=== PATIENT | female | born 1985 | race Caucasian/White ===

== ENCOUNTER 2020-08-11 10:00 | Outpatient (RCR) | payer OTHER, SELFPAY ==
[2020-07-29 13:51] VITALS: BMI 19.8
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
--- NOTE | 2020-07-31 09:42 | PC.NURSE ---
Unable to verify patients insulin with patients pharmacy as the pharmacist stated they have no record on file for insulin. I received the prescription numbers from the patient for both medications as requested. Pharmacist stated last filled Humolog quick pen on September 24 (for 4 pens) with instructions to take up to 40 units daily. Pharmacist stated that would have run out in 1 month possibly 2 months. Also Tresiba was filled on December 12 2019 for (9 pens) take up to 30 units daily. Pharmacist stated she would have run out in 1 possibly 2 months. Patient stated she only fills at [facility] where I called. She states she takes as prescribed. Stated BS have been running in the low 200's to low 300's. Jennifer Haque APRN is aware. Unable to reconcile insulin medication.
--- NOTE | 2020-08-04 14:53 | P.PNPSP_ITS ---
Subjective Subjective Date of Service: 08/04/20 Reason For Visit: depression Interim History: Pt requested call to discuss medications. 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 She concurs and can recall no others. Discussed trial of Lamictal as antidepressants seem not to have been too helpful and current gabapentin has offered relief. She is interested in Lamictal trial which we discussed along with side effects, risks, benefits. Medication Compliance: Yes Side effects from medications: No Attending Groups: Yes Review of Systems Musculoskeletal: Reports other (chronic pain) Psychiatric: Reports anxiety, Reports depression, Reports difficulty concentrating, Reports hopelessness, Reports irritability, Reports anhedonia and Reports other (chronic pain) Mental Status Exam Mental Status Exam Patient Orientation: Person, Place, Time and Situation Level of Consciousness: Awake, Appropriate and Alert Patient Behavior: Appropriate and Talkative Mood Description: Withdrawn, Depressed, Anxious, Nervous and Apprehensive Affect Description: Flat Patient Cognition Impaired: No Ability to Follow Directions: Excellent Speech Pattern: Clear, Appropriate and Spontaneous Speech Memory Description: Intact Hallucinations: None Delusions: Not Present Thought Process: Intact Thought Content: positive for Intact Depressive Symptoms: Increased Anxiety, Loss of Int. in Activity, Hopelessness, Unhappiness, Increased Fatigue and Loss of Energy Judgement: Good Diagnostics Vital Signs (24Hr): Body Mass Index 19.8 Assessment & Plan Assessment & Plan (1) Recurrent major depression-severe: Status: Acute Code(s): F33.2 - Major depressive disorder, recurrent severe without psychotic features Assessment and Plan: By history, pt has had ineffective trials of Prozac, Cymbalta, Wellbutrin XL, Sertraline. Discussed with pt on initial intake and today a trial of Lamictal and if tolerated and effective, adding an antidepressant in the future. Pt would like to initiate this trial. Discussed SE, risks, benefits and anticipated outcome. Lamictal 25 mg daily for 14 days. Titration as pt tolerates. Certification I certify that partial hospital treatment is medically necessary due to the symptoms and problems resulting from the patient's mental illness and the failure to treat the patient at the partial hospital level of care would likely result in the patient requiring inpatient psychiatric care which could not be prevented at a less intensive level of care. Greater than 50% of the session was spent on counseling and/or coordination of care Discharge Plan Discharge Attending provider: Dino Gallagher Medications: New lamotrigine [Lamictal] 25 mg tablet 25 mg PO DAILY 14 Days Qty: 14 RF: 0 No Action gabapentin 600 mg Tablet 600 mg PO QID RF: 0 pregabalin 50 mg Capsule 100 mg PO BID RF: 0 buprenorphine-naloxone [Suboxone] 8-2 mg Film 1 film SUBLINGUAL TID RF: 0
--- NOTE | 2020-08-07 12:04 | PC.NURSE ---
Checked in with patient as patient told staff she was having issues with her blood sugars. Patient stated that she was in denial with her dx of Type I diabetes for 2 years. Stated she just got her Dexcom glucose monitor back and just started using it again. Working on her new diet after having all her teeth extracted and is having some issues with high and low blood sugars. Pt did not want to reach out to her PCP as she stated she has been working closely with [facility] and just had a virtual appointment with them 2 weeks ago and has another f/u appointment soon. Stated she sees a hematology nurse educator and a software licensing analyst through [place] as well. Most recent BS per patient is 179. Stated that this blood sugar result is better than what it has been. Pt did talk about wanting an appointment with the pain clinic at [facility] and asked for staff to make an appointment.
--- NOTE | 2020-08-08 12:37 | PC.NURSE ---
Patient reports dx of Fibromyalgia and Chronic pain syndrome. She asked for staff assistance in scheduling an appointment with [facility]. Patient has a telephone appointment on August 19, 2020 at 0830. The office will be calling patient at that time for a pain management evaluation.
--- NOTE | 2020-08-08 14:32 | PC.NURSE ---
I spoke with the client about aftercare plans . I will make an appointment for out patient therapy and med management with JORGE when she is closer to discharge.
--- NOTE | 2020-08-11 12:39 | HO.PHPPROGNO ---
Subjective Subjective Date of Service: 08/11/20 Reason For Visit: depression Interim History: Adriana reports the anxiety is too much . States she sweats and shakes. Reports a difficult weekend as she found it difficult to distract herself to manage sx and allow the anxiety to pass. Lamictal is tolerated. States her mind cannot think straight at times. Current regime not helping with symptoms. Denies withdrawal sx. Medication Compliance: Yes Side effects from medications: No Attending Groups: Yes Review of Systems Psychiatric: Reports abnormal sleep pattern, Reports anxiety, Reports change in appetite, Reports depression, Reports difficulty concentrating, Reports hopelessness, Reports irritability, Reports anhedonia and Reports mood swings (at times) Mental Status Exam Mental Status Exam Patient Orientation: Person, Place, Time and Situation Level of Consciousness: Awake, Appropriate and Alert Patient Behavior: Appropriate, Talkative, Cooperative, Anxious and Fatigued Mood Description: Withdrawn, Depressed, Anxious, Sad, Nervous and Apprehensive Affect Description: Constricted Patient Cognition Impaired: No Ability to Follow Directions: Excellent Speech Pattern: Clear, Perseverating, Appropriate, Spontaneous Speech, Coherent and Soft-Spoken Diagnostics Vital Signs (24Hr): Body Mass Index 19.8 Assessment & Plan Assessment & Plan (1) Recurrent major depression-severe: Status: Acute Code(s): F33.2 - Major depressive disorder, recurrent severe without psychotic features Assessment and Plan: _Seroquel 25 mg daily prn for anxiety Certification I certify that partial hospital treatment is medically necessary due to the symptoms and problems resulting from the patient's mental illness and the failure to treat the patient at the partial hospital level of care would likely result in the patient requiring inpatient psychiatric care which could not be prevented at a less intensive level of care. Greater than 50% of the session was spent on counseling and/or coordination of care Discharge Plan Discharge Attending provider: Dino Gallagher Medications: New lamotrigine [Lamictal] 25 mg tablet 25 mg PO DAILY 14 Days Qty: 14 RF: 0 quetiapine [Seroquel] 25 mg tablet 25 mg PO DAILY PRN (Reason: anxiety) Qty: 7 RF: 0 No Action gabapentin 600 mg Tablet 600 mg PO QID RF: 0 pregabalin 50 mg Capsule 100 mg PO BID RF: 0 buprenorphine-naloxone [Suboxone] 8-2 mg Film 1 film SUBLINGUAL TID RF: 0 Telehealth Telehealth Location of provider rendering services: practice address Location of patient: address on file Patient Identification confirmed using: Name, : Yes Telehealth method: voice only Patient verbally consented to treatment: Yes Patient verbally consented to billing insurance company: Yes Patient informed of any privacy concerns related to visit: Yes Time spent with patient (mins): 20
--- NOTE | 2020-08-11 15:28 | PC.NURSE ---
I called [facility] central registration to secure appointments for a therapist and prescriber for Adriana. I spoke with Jen who took the information and said that they will call me back with dates and times.
--- NOTE | 2020-08-13 14:37 | PC.NURSE ---
The client came to community meeting this morning and stated that she continues to struggle with depression and that the program has not been helpful. She explains that she has things to do and requests to be discharged. A referral was made for a therapist and prescriber at [facility]. The clients PHQ nine questionnaire was completed and she answered 3 on the question that referred to thoughts that you would be better off . We discussed this and client denies any suicidal plan or intent . She states that her children, ages 18, 12 and 4, are protective factors. She has the contact number for crisis and [facility]
--- NOTE | 2020-08-14 09:23 | PC.NURSE ---
Called Patients PCP's office yesterday and left a message. Spoke to Lesia RN from patient's PCP's office this morning who will speak to patient's PCP Trevor Neely regarding filling prescriptions for Lamictal and Seroquel until she has a psychiatrist appointment. [facility] team is aware. Khalida De La Torre [facility] is working on getting a provider appointment for patient. Of note, Patient did not complete her treatment at [facility].
--- NOTE | 2020-08-15 11:30 | PC.NURSE ---
Addendum entered by Lo Moe RN 08/15/20 11:35: prescriber on 09/04/2019. Spoke to patient and she is aware and also reviewed her appointments. Original Note: Spoke to Ankita DNUNE from patient's PCP's office and she stated that Adriana's PCP will continue prescribing Lamictal and Seroquel unitl patient has an appointment with a psychiatric presc
== END 2020-08-13 23:55 | disposition left against medical advice (07) ==
LOC: HO.PHPA 10:00
PROVIDERS: Visit Provider Psychiatry & Neurology Psychiatry
DX: F33.2 Major depressive disorder, recurrent severe without psychotic features (principal); F43.10 Post-traumatic stress disorder, unspecified; F41.9 Anxiety disorder, unspecified
CPT/HCPCS: 90792; 90853; 99213

== ENCOUNTER → 2021-09-30 09:58 | Outpatient (BNVA) | payer MEDICAID, SELFPAY | PROVIDERS: PCP Internal Medicine; Visit Provider Nurse Practitioner Family | DX: M79.7 Fibromyalgia (principal); E11.40 Type 2 diabetes mellitus with diabetic neuropathy, unspecified; F11.20 Opioid dependence, uncomplicated | CPT/HCPCS: 99202 ==

== ENCOUNTER 2022-02-17 08:08 | Outpatient (REF) | payer MEDICAID, SELFPAY ==
[2022-02-17 09:43] LABS: Estimated Average Glucose 226 mg/dL; Hemoglobin A1c % 9.5 %
== END 2022-02-17 08:09 | disposition home or self-care (01) ==
LOC: HO.LAB 08:08
PROVIDERS: PCP Internal Medicine; Visit Provider Nurse Practitioner Family
DX: Z13.89 Encounter for screening for other disorder (principal)
CPT/HCPCS: 36415; 83036

== ENCOUNTER 2022-02-19 11:18 | Day surgery (SDC) | payer MEDICAID, SELFPAY ==
--- NOTE | 2022-02-18 10:33 | HO.ANESPROP2 ---
Documented by User: Jessie Fox NP 02/18/22 10:35 HPI - Anesthesia Eval Consult details Narrative: 36yo F for Lumbar Spinal Cord Stimulation Trial suboxone daily PMFSH Active Problems Active Problems: All Active Problems (Updated 10/05/21 @ 13:51 by Martine Dickey NP) Fibromyalgia (Acute) Diabetic neuropathy (Acute) Current smoker (Acute) Recurrent major depression-severe (Acute) Past Medical History Medical History Anemia Asthma Chronic pain syndrome DKA, type 1 Hair loss Herniated disc Hx of diabetes with ketoacidosis Hx of rheumatoid arthritis Loss of all teeth Lumbar spondylolysis Myofascial pain syndrome Neuropathy Type 1 diabetes mellitus Surgical History Surgical History No pertinent past surgical history Social History Social History Household Members: Spouse and Children Patient Tobacco Use Status: Current everyday Tobacco user Cigarette Packs Per Day: 0.50 Cigarettes Per Day: 5 Years Smoked: Since age 9 Second Hand Smoke Exposure: No Use of substances other than those prescribed or required for medical reasons: Yes Are you DNR?: No Advance Directives: No Advance Directives Information Provided: Yes Advance Directives on File: No Meds Allergies Allergy/AdvReac Type Severity Reaction Status Date / Time No Known Allergies Allergy Verified 09/30/21 10:27 [No Known Allergies*] Home Medications Medication Instructions Recorded Confirmed Last Taken Type buprenorphine 8 mg-naloxone 2 mg 1 film sublingual TID 07/30/20 02/11/22 02/19/22 History sublingual film (Suboxone) gabapentin 600 mg tablet 600 mg PO QID 07/30/20 02/11/22 02/19/22 History pregabalin 50 mg capsule 100 mg PO BID 07/30/20 02/11/22 07/29/20 07:00 History clonazepam 0.5 mg tablet 0.5 mg PO TID 09/30/21 02/11/22 02/19/22 History insulin degludec 100 unit/mL (3 0 - 30 unit subcut DIRECTED 02/19/22 02/19/22 Unknown History mL) subcutaneous pen (Tresiba FlexTouch U-100 insulin) pen needle, diabetic 32 gauge x 02/19/22 02/19/22 Unknown History (BD Ana 2nd Gen Pen Needle) Exam Exam Date and Time: February 18, 2022 103 Assessment and Plan Assessment Anesthesia Assessment: Chart Reviewed Documented by User: Iris Esquivel MD 02/19/22 12:17 PMFSH Past Medical History Medical History Anemia Asthma Chronic pain syndrome DKA, type 1 Hair loss Herniated disc Hx of diabetes with ketoacidosis Hx of rheumatoid arthritis Loss of all teeth Lumbar spondylolysis Myofascial pain syndrome Neuropathy Type 1 diabetes mellitus Family History Family history of problems with anesthesia: No Surgical History Surgical History No pertinent past surgical history History of Problems with Anesthesia: No Social History Social History Household Members: Spouse and Children Patient Tobacco Use Status: Current everyday Tobacco user Cigarette Packs Per Day: 0.50 Cigarettes Per Day: 5 Years Smoked: Since age 9 Second Hand Smoke Exposure: No Use of substances other than those prescribed or required for medical reasons: Yes Are you DNR?: No Advance Directives: No Advance Directives Information Provided: Yes Advance Directives on File: No Meds Allergies Allergy/AdvReac Type Severity Reaction Status Date / Time No Known Allergies Allergy Verified 09/30/21 10:27 [No Known Allergies*] Home Medications Medication Instructions Recorded Confirmed Last Taken Type buprenorphine 8 mg-naloxone 2 mg 1 film sublingual TID 07/30/20 02/11/22 02/19/22 History sublingual film (Suboxone) gabapentin 600 mg tablet 600 mg PO QID 07/30/20 02/11/22 02/19/22 History pregabalin 50 mg capsule 100 mg PO BID 12/02/20 06/16/22 12/01/20 07:00 History clonazepam 0.5 mg tablet 0.5 mg PO TID 09/30/21 02/11/22 02/19/22 History insulin degludec 100 unit/mL (3 0 - 30 unit subcut DIRECTED 02/19/22 02/19/22 Unknown History mL) subcutaneous pen (Tresiba FlexTouch U-100 insulin) pen needle, diabetic 32 gauge x 02/19/22 02/19/22 Unknown History (BD Ana 2nd Gen Pen Needle) Exam Airway Mallampati Class: II TM Dist: >3cm Neck ROM: Full Assessment and Plan Assessment Anesthesia Assessment: Anesthesia Plan Discussed Final Anesthetic Review Family History of Problems with Anesthesia: No History of Problems with Anesthesia: No NPO: Yes ASA Class: II Final Preanesthetic Review: No Changes in Pt Med Stat, Meds/Allgs Chart Reviewed, Consent Obtained/Reviewed and Anes Risks/Benef Reviewed Patient Risk: Low Procedure Risk: Low Anesthetic Plan Anesthetic Plan: MAC: Disposition: Standard PACU
[2022-02-19] VITALS (9 sets, daily range): BP systolic 109–151; BP diastolic 75–98; PULSE 61–82; RESP 16–22; TEMP 36.2–36.7; O2SAT 98–100; BMI 20.1
--- NOTE | ~2022-02-19 | FL_ITS ---
EXAMINATION: XR FLUOROSCOPY WITH IMAGES CLINICAL INFORMATION: Spinal stimulator trial. COMPARISON: Chest radiographs 12/26/2019 TECHNIQUE: Fluoroscopy performed by Dr. Abhijit Mojica. Fluoroscopy time: 2 minutes DAP: 4.37 mGycm2 Images: 4 FINDINGS: There are 2 spinal stimulator electrodes seen ascending the posterior spinal canal. The electrode tips are at level of mid thoracic spine, approximately upper T8 and T6-T7, respectively. There is no visible kinking or defect of the leads. FL/FL guidance in OR IMPRESSION: Fluoroscopy for pain management procedure.
[2022-02-19 11:37] LABS: UPreg QC Valid YES
[2022-02-19 11:39] LABS: Urine Pregnancy NEGATIVE (NEGATIVE)
[2022-02-19] MEDS: Lactated Ringers 1,000 ML 100 ML IVCONT (11:40)
[2022-02-19 11:53] LABS: Glucose, Whole Blood 184 mg/dL (60-115)
[2022-02-19 12:43] LABS: Hematocrit 33.8 % (37.0-47.0); Hemoglobin 11.3 g/dl (12.0-16.0); Mean Corpuscular HGB Conc 33.4 g/dl (31.0-35.0); Mean Corpuscular Hemoglobin 31.6 pg (27.0-33.0); Mean Corpuscular Volume 94.4 fL (80.0-98.0); Mean Platelet Volume 9.3 fL (9.4-12.3); Platelet Count 151 X10*3/uL (160-400); Red Blood Count 3.58 X10*6/uL (4.20-5.50); Red Cell Distribution Width 13.1 % (11.0-16.0); White Blood Count 6.8 X10*3/uL (4.8-10.8)
[2022-02-19 13:18] LABS: Anion Gap 9 (12-20); Blood Urea Nitrogen 8 mg/dL (9-16); Calcium 8.6 mg/dL (8.4-10.2); Carbon Dioxide 26 mmol/L (22-29); Chloride 108 mmol/L (96-108); Creatinine Clr Calc Pharmacy 87.2; Estimated Glomerular Filt Rate > 60; Glucose Fasting 211 mg/dL (60-99); Potassium 4.3 mmol/L (3.3-5.1); Sodium 139 mmol/L (135-145)
--- NOTE | 2022-02-19 13:24 | MHC.SHP ---
Pre-Procedural Eval Section A Date of Service: 02/19/22 The patient is an INPATIENT: No Changes since office visit: Yes Patient answered all questions The History & Physical has been completed within 30 days and I have reviewed it.: No Section B Chief Complaint: Type 2 diabetes mellitus with diabetic neuropathy, Details of Present Illness: as above Relevant Family History (Specify if Yes): No Relevant Social History: None Present Medications: see Short Stay Collaborative assessment Medical History: Significant History (diabetes, diabetic polyneropathy) History of Previous Operations: No relevant previous surgery Allergies: Allergies Allergy/AdvReac Type Severity Reaction Status Date / Time No Known Allergies Allergy Verified 09/30/21 10:27 [No Known Allergies*] Review of Systems Sugical H&P ROS: Negative: Constitution, Cardiovascular, Respiratory, Neurological, Psychiatric, Hem-Onc, Allergic/Immunologic, Gastrointestinal, Genitourinary, Musculoskeletal, Integumentary, Endocrine and Eyes/Ears/Nose/Throat Exam Surgical H&P Exam: Normal: HEENT, Normal: Heart, Normal: Lungs, Normal: Extremities, Normal: Abdomen, Normal: Skin and Normal: Neurological Plan Diagnosis/Plan: Unchanged I have reviewed the history and physical and performed a pertinent physical examination on my patient. No changes have occurred unless specified.
--- NOTE | 2022-02-19 15:00 | P.OP_ITS ---
Operative Note Operative Note Date of Service: 02/19/22 Narrative: ?Adriana is very pleasant 36 years old female? who came today into the operating room for trial of? Nevro spinal cord stimulator for the treatment of Diabetic peripheral neuropathy. She is on Suboxone because of OUD. Preoperatively patient received cefasolin 2 g approximately 30 minutes before the procedure. After obtaining informed consent the patient was brought to the operating room, She was positioned prone on operating table, [employer] monitors were applied and patient was deeply sedated.? ?Time-out was performed delineating correct site, side, the nature of the procedure, patient's allergy, preoperative antibiotic if needed.? All operating room staff was participating in OR time-out procedure. Patient's entire back was prepped with DuraPrep twice and draped with full body fenestrated drape.? Sterilely draped C-arm was brought over operating field and square picture of T12 L1 L2? L3 vertebrae as were demonstrated on the screen. A set of ribs at the 1st lumbar ( 13th thoracic ) vertebra is noted on the screen.? Attention FIRST? was concentrated on the L1-L2 epidural interspace.?The location of the projection of the right pedicle center of the? L3 vertebra was found on the skin using C-arm.? This location was injected with mixture of lidocaine 2% and Marcaine 0.25% 5 cc.? After that 11 blade was used to make a jak on the skin.? 10 cm 14 gauge? introducer epidural needle was inserted through the jak and advanced to? L1-L2 epidural interspace.? The advancement of the needle was performed on anterior posterior and lateral views.? Guitar wire and loss of resistance technique were used to locate epidural space.? When guitar wire was spread in the epidural fashion, epidural lead was inserted through the skin and it was advanced to ? top of T8 position? SLIGHTLY? right of the MIDLINE.? After that location of the projection of the LEFT pedicle center of the L3 vertebra was found on the skin using C-arm.? This location was injected with mixture of lidocaine 2% and Marcaine 0.25% 5 cc.? After that 11 blade was used to make a jak on the skin.? 10 cm 14 gauge curved introducer epidural needle was inserted through the jak and advanced to L1-L2 epidural interspace.? The advancement of the needle was performed on anterior posterior and lateral views.? Guitar wire and loss of resistance technique were used to locate epidural space.? When guitar wire was spread in the epidural fashion, epidural lead was inserted through the needle and advanced to the middle of T9 epidural interspace?.? It was inserted slightly? left to the existing electrode. Impedance was checked and was satisfactory .The needles were withdrawn, the stylette wires were removed from the epidural leads.? The anchoring devices were dislodged on the leads and advanced to the level of the skin.? The anchoring devices were sutured with two 0-0 silk sutures per each anchor to the skin of the patient. The central fixation screw of each anchor was rotated until three clicks were heard. The leads were connected to testing device.? Bacitracin ointment was applied to the entrance point of bilateral needles.? Sterile dressing was applied to the patient's back.? The testing device was also glued to the patient's back.? the patient was transferred on the stretcher awaken and transferred to PACU for immediate recovery.
--- NOTE | 2022-02-19 15:04 | P.BOP_ITS ---
Brief Operative Note Date of Service: 02/19/22 Pre-op diagnosis: diabetic peripheral neuropathy Procedure: trial of Nevro spinal cord stimulator Implants: none per Surgeon: Abhijit Mojica MD Anesthesia: MAC Was an Line Installation Supervisor used for this Procedure?: No Estimated blood loss (mL): 0 Pathology: none sent Condition: stable Disposition: PACU
--- NOTE | 2022-02-19 17:11 | PC.NURSE ---
patient reports some pain relief following iv tylenol 04/07. dressing to posterior back c/d/i. I just want to go home . assisted to dress at bedside. neuro status stable.
== END 2022-02-19 17:14 | disposition home or self-care (01) ==
PROVIDERS: Nurse Practitioner; PCP Internal Medicine; Visit Provider Anesthesiology
PROC: (CPT 63650; principal; 2022-02-19 12:50)
DX: E11.40 Type 2 diabetes mellitus with diabetic neuropathy, unspecified (principal); M79.7 Fibromyalgia; G89.4 Chronic pain syndrome; Z79.4 Long term (current) use of insulin; F11.24 Opioid dependence with opioid-induced mood disorder; F33.2 Major depressive disorder, recurrent severe without psychotic features; D64.9 Anemia, unspecified; J45.909 Unspecified asthma, uncomplicated; L65.9 Nonscarring hair loss, unspecified; Z79.899 Other long term (current) drug therapy; F17.210 Nicotine dependence, cigarettes, uncomplicated
CPT/HCPCS: 63650 ×2; 36415; 80048; 81025; 82947; 85027; C1713; C1778; J0131; J0690; J2250; J2795; J3010

== ENCOUNTER → 2022-02-25 10:06 | Outpatient (BNVA) | payer MEDICAID, SELFPAY | PROVIDERS: PCP Internal Medicine; Visit Provider Anesthesiology | DX: E11.40 Type 2 diabetes mellitus with diabetic neuropathy, unspecified (principal); M79.7 Fibromyalgia | CPT/HCPCS: 99212 ==

== ENCOUNTER 2023-11-03 10:52 | Outpatient (AMB) | payer OTHER, SELFPAY ==
--- NOTE | 2023-11-03 11:08 | A.OFFVIS_ITS ---
Intake Vital Signs 11/03/23 11:10 Height 5 ft Weight 102 lb 2 oz BMI 19.9 BP 133/88 Blood Pressure Location Lt brachial Position Sitting Respiration 12 Pulse 82 Pulse Source Pulse Oximeter Pulse Oximetry (%) 99 Oxygen Delivery Method Room Air Intake Visit Reasons: Diabetic Neuropathy Intake Note: Patient comes in for initial visit was referred by primary care. Reports pain 04/07. Allergies No Known Allergies [No Known Allergies*] Allergy (Verified 11/03/23 11:13) HPI HPI Comments History of Present Illness Details Adriana is very pleasant 38 years old very unfortunate female who presents in my office with complains on pain widespread all over the body. Originally she was scheduled in this office a new patient. However she was in this office before, for the treatment of diabetic neuropathy she received SCS Nevro trial. She reported no help from SCS trial. She has opioid use disorder. She is on Suboxone. She complains on fibromyalgia kind of pain in bilateral shoulders bilateral lower back bilateral feet bilateral hands, she is also suffering from diabetic neuropathy on bilateral hands and feet. She reports severe pain in lower back 10. She reports pain in the shoulders /10. She reports that flexing forward hurts more than flexing backwards. Walking hurts more than sitting or laying down or standing. She reports that she can not sleep normally can not do activities of daily living can not take care of herself can not function normally she is currently unemployed. She reports that cold and weather changes aggravate her pain. She reports that heat applications make her pain better. However she demonstrated me the burn in her entire back which was received when she applied heat patch to her back. She reports her pain most severe in the morning and in the evening and less severe in the middle of the day. In terms tissue damage she reports her pain as throbbing, shooting, stabbing, sharp, cutting, pinching, cramping, crushing, wrenching, hot burning, searing, tingling, stinging, sore, heavy, tiring, exhausting, sickening, fearful, terrifying, killing, radiating, piercing, tight, tearing, cold sensation. She received gabapentin to treat her pain she was previously on muscle relaxants but now she does not receive any muscle relaxants. She received Suboxone 03/30. She reports that this is the only medication she is prescribed for pain by her psychiatrist. She received multiple studies of her lumbar spine in the past including x-rays and MRIs but those were done more than 5 years ago. She received physical therapy and continues physical therapy with [facility]. She was trying massage therapy and 10s unit. She received therapeutic injections in 2004 2006. She reports no help from those injections. She received trial of spinal cord stimulator in the past and it was not effective for her pain. She is suffering from severe depression and she is under care of psychologist and psychiatrist. S PTSD. Her diabetes is also out of control with hemoglobin A1c 8.6. She reports that she lost her teeth and she can not eat normally. She has anemia and asthma. She has dizziness and fainting and headaches. She had in the past surgical history of . She also reports dental surgeries. She reports smoking cigarettes half a pack a day. Denies drinking alcohol, denies caffeinated beverages, she adamantly denies recreational drugs. alcohol denies recreational drugs. [facility] Medical History (Updated 11/03/23 @ 12:01 by Abhijit Mojica MD) Current smoker DKA, type 1 Recurrent major depression-severe Hx of diabetes with ketoacidosis Loss of all teeth Hair loss Herniated disc Neuropathy Anemia Myofascial pain syndrome Type 1 diabetes mellitus Asthma Fibromyalgia Chronic pain syndrome Lumbar spondylolysis Hx of rheumatoid arthritis Surgical History No pertinent past surgical history Social History Household Members: Spouse and Children Comment: chronic pain 06/07 preop Patient Tobacco Use Status: Current everyday Tobacco user Cigarette Packs Per Day: 0.50 Cigarettes Per Day: 5 Years Smoked: Since age 9 Second Hand Smoke Exposure: No Review of Systems Const Reports anorexia, Reports body aches, Reports difficulty sleeping, Reports fatigue, Reports lethargy, Reports poor appetite and Reports weight loss ENT Denies Normal hearing present Card Reports no additional complaints Resp Reports no additional complaints GI Reports as per HPI Musc Reports as per HPI Neuro Reports no additional complaints, Denies Normal hearing present and Denies Abnormal speech present Psych Reports as per HPI Endo Reports fatigue Physical Exam Vital Signs: Last Vital Signs Pulse 82 11/03/23 11:10 Resp 12 11/03/23 11:10 BP 133/88 11/03/23 11:10 Pulse Ox 99 11/03/23 11:10 Oxygen Delivery Method Room Air 11/03/23 11:10 BMI result Body Mass Index 19.9 Const General: cooperative, healthy appearing, no acute distress, alert and well abhay omed Nutritional Appearance: thin Orientation/consciousness: patient oriented x3 Limitations: no limitations HEENT Head: Yes normocephalic and Yes atraumatic Ears: hearing grossly normal bilaterally Eyes General: appearance normal, both eyes and all related structures Eyelids: Yes eyelids normal Pupils: Equal, round and reactive pupils present EOM: EOMs intact bilaterally Neck Neck: Yes normal visual inspection and Yes no JVD Resp Effort & Inspection: normal respiratory effort, able to speak in complete sentences and no audible wheezes Cardio Jugular venous distension: no JVD Neuro General: patient oriented x3, gait normal and moves all extremities Cranial nerves: Yes Equal, round and reactive pupils present and No Normal hearing present Speech: No Abnormal speech present Psych Appearance: grossly normal Speech and movement: Pressured speech present Affect: Labile affect present, Animated affect present, Anxious affect present, Hostile affect present, Depressed mood present and Irritable affect present Attitude: Belligerent attititude/behavior present Thought process: Tangential thought process present Thought content: Obsession(s) present Insight: Limited insight present (Psych) Judgement: Fair judgement present (Psych) Assessment & Plan Assessment & Plan (1) Diabetic neuropathy: Code(s): E11.40 - Type 2 diabetes mellitus with diabetic neuropathy, unspecified (2) Fibromyalgia: Code(s): M79.7 - Fibromyalgia Plan Adriana presents for evaluation of widespread pain which she attributes to fibromyalgia and diabetic neuropathy. In the past we discussed history of documented opioid use disorder resulting in violation of a pain contract. With this history she is not a candidate for medical management through this office. She is currently on Suboxone 10/06. Trial of Nevro SCS resulted in no improvement of the pain control. She gave only 30% of pain improvement while on trial. She became belligerent and agitated. She avoided eye contacts and blame this office for inaction. He is currently on Suboxone as it was recommended in this office. I will start her on increased doses of gabapentin 600 mg t.i.d.. I also will start her on tizanidine 2 mg 3 times a day. At least this medication will help her to sleep. Hold her that she may take 2 pills at night if it is helpful for her to be asleep. She is currently under care of psychiatrist for depression. Obviously this is a good step to better condition. Her depression is obviously unstable. Her fibromyalgia is very widespread. She also has PTSD. Orders: Orders MR lumbar spine wo con Today M47.816 - Spondylosis without myelopathy or radiculopathy, lumbar region Medications: New gabapentin 600 mg PO TID 30 days 90 tabs 5RF tizanidine 2 mg PO TID PRN 90 tabs 5RF muscle spasticity 30 days gabapentin 600 mg PO TID 90 tabs 5RF 30 days Coding Level of Care Code Est Pt Level 4 (30861) Diagnoses Diabetic neuropathy E11.40 Fibromyalgia M79.7
[2023-11-03 11:10] VITALS: BP 133/88; PULSE 82; RESP 12; O2SAT 99; BMI 19.9
== END 2023-11-03 11:53 | disposition home or self-care (01) ==
PROVIDERS: PCP Internal Medicine; Visit Provider Anesthesiology
DX: E11.40 Type 2 diabetes mellitus with diabetic neuropathy, unspecified (principal); M79.7 Fibromyalgia
CPT/HCPCS: 99214

== ENCOUNTER → 2023-11-03 11:01 | Outpatient (BNVA) | payer OTHER, SELFPAY | PROVIDERS: PCP Internal Medicine; Visit Provider Anesthesiology | DX: E11.40 Type 2 diabetes mellitus with diabetic neuropathy, unspecified (principal); M79.7 Fibromyalgia; F11.20 Opioid dependence, uncomplicated; Z79.899 Other long term (current) drug therapy | CPT/HCPCS: 99212 ==

== ENCOUNTER 2023-12-05 09:37 | Outpatient (AMB) | payer OTHER, SELFPAY ==
--- NOTE | 2023-12-05 09:39 | MHC.OFFVIS ---
Intake Vital Signs 12/05/23 09:43 Height 5 ft Weight 103 lb 6 oz BMI 20.2 BP 128/88 Blood Pressure Location Lt brachial Position Sitting Respiration 14 Pulse 81 Pulse Source Pulse Oximeter Pulse Oximetry (%) 98 Oxygen Delivery Method Room Air Intake Visit Reasons: 1 Month Follow Up Intake Note: Patient comes in for follow up appointment. Reports pain 9/10. Allergies No Known Allergies [No Known Allergies*] Allergy (Verified 12/05/23 09:43) HPI HPI Comments History of Present Illness Details Adriana is back in my office for the follow-up. She reports that tizanidine I started her last time allows her to be more mobile, she reports less stiffness and she reports more activities of daily living ability to perform. She also reports that gabapentin 600 mg helps her. At this time we decided to continue with this medication. She is also scheduled for MRI and she will be followed up here with the MRI of the lumbar spine results. Next appointment in 1 month. Prior: Complains on pain widespread all over the body. she was in this office before, for the treatment of diabetic neuropathy she received SCS Nevro trial. She reported no help from SCS trial. She has opioid use disorder. She is on Suboxone. She complains on fibromyalgia kind of pain in bilateral shoulders bilateral lower back bilateral feet bilateral hands, she is also suffering from diabetic neuropathy on bilateral hands and feet. She reports severe pain in lower back 9/10. She reports pain in the shoulders 10/10. She reports that flexing forward hurts more than flexing backwards. Walking hurts more than sitting or laying down or standing. She reports that she can not sleep normally can not do activities of daily living can not take care of herself can not function normally she is currently unemployed. She reports that cold and weather changes aggravate her pain. She reports that heat applications make her pain better. However she demonstrated me the burn in her entire back which was received when she applied heat patch to her back. She received gabapentin to treat her pain she was previously on muscle relaxants but now she does not receive any muscle relaxants. She received Suboxone 03/30. She reports that this is the only medication she is prescribed for pain by her psychiatrist. She received multiple studies of her lumbar spine in the past including x-rays and MRIs but those were done more than 5 years ago. She received physical therapy and continues physical therapy with [facility]. She was trying massage therapy and 10s unit. She received therapeutic injections in 2004 2006. She reports no help from those injections. She received trial of spinal cord stimulator in the past and it was not effective for her pain. She is suffering from severe depression and she is under care of psychologist and psychiatrist. S PTSD. Her diabetes is also out of control with hemoglobin A1c 8.6. She reports that she lost her teeth and she can not eat normally. She has anemia and asthma. She has dizziness and fainting and headaches. She had in the past surgical history of . She also reports dental surgeries. She reports smoking cigarettes half a pack a day. Denies drinking alcohol, denies caffeinated beverages, she adamantly denies recreational drugs. alcohol denies recreational drugs. [facility] Medical History (Updated 11/03/23 @ 12:01 by Abhijit Mojica MD) Current smoker DKA, type 1 Recurrent major depression-severe Hx of diabetes with ketoacidosis Loss of all teeth Hair loss Herniated disc Neuropathy Anemia Myofascial pain syndrome Type 1 diabetes mellitus Asthma Fibromyalgia Chronic pain syndrome Lumbar spondylolysis Hx of rheumatoid arthritis Surgical History No pertinent past surgical history Social History Household Members: Spouse and Children Comment: chronic pain 06/07 preop Patient Tobacco Use Status: Current everyday Tobacco user Cigarette Packs Per Day: 0.50 Cigarettes Per Day: 5 Years Smoked: Since age 9 Second Hand Smoke Exposure: No Review of Systems Const All systems reviewed & are unremarkable except as noted in HPI and below ENT Denies Normal hearing present Neuro Denies Normal hearing present and Denies Abnormal speech present Physical Exam Vital Signs: Last Vital Signs Pulse 81 12/05/23 09:43 Resp 14 12/05/23 09:43 BP 128/88 12/05/23 09:43 Pulse Ox 98 12/05/23 09:43 Oxygen Delivery Method Room Air 12/05/23 09:43 BMI result Body Mass Index 20.2 Const General: cooperative, healthy appearing, no acute distress, alert and well groomed Nutritional Appearance: thin Orientation/consciousness: patient oriented x3 Limitations: no limitations HEENT Head: Yes normocephalic and Yes atraumatic Ears: hearing grossly normal bilaterally Eyes General: appearance normal, both eyes and all related structures Eyelids: Yes eyelids normal Pupils: Equal, round and reactive pupils present EOM: EOMs intact bilaterally Neck Neck: Yes normal visual inspection and Yes no JVD Resp Effort & Inspection: normal respiratory effort, able to speak in complete sentences and no audible wheezes Cardio Jugular venous distension: no JVD Neuro General: patient oriented x3, gait normal and moves all extremities Cranial nerves: Yes Equal, round and reactive pupils present and No Normal hearing present Speech: No Abnormal speech present Psych Appearance: grossly normal Speech and movement: Pressured speech present Affect: Labile affect present, Animated affect present, Anxious affect present, Hostile affect present, Depressed mood present and Irritable affect present Attitude: Belligerent attititude/behavior present Thought process: Tangential thought process present Thought content: Obsession(s) present Insight: Limited insight present (Psych) Judgement: Fair judgement present (Psych) Assessment & Plan Assessment & Plan (1) Diabetic neuropathy: Code(s): E11.40 - Type 2 diabetes mellitus with diabetic neuropathy, unspecified (2) Fibromyalgia: Code(s): M79.7 - Fibromyalgia Plan Adriana presents for evaluation of widespread pain which she attributes to fibromyalgia and diabetic neuropathy. In the past we discussed history of documented opioid use disorder resulting in violation of a pain contract. With this history she is not a candidate for medical management through this office. She is currently on Suboxone 10/06. Trial of Nevro SCS resulted in no improvement of the pain control. She gave only 30% of pain improvement while on trial. She became belligerent and agitated. She avoided eye contacts and blame this office for inaction. He is currently on Suboxone as it was recommended in this office. She reports excellent results of minimal dose of tizanidine 2 mg 3 times a day, she reports flexibility improvement, reports activities of daily living improvement. She wants to continue this medication. She also reports improvement with gabapentin 600 mg t.i.d.. I also will recommend her to continue this medication. Gabapentin and tizanidine are prescribed on 11/03/2023 with 5 refills. She is currently under care of psychiatrist for depression. Her depression is obviously unstable. Her fibromyalgia is very widespread. She also has PTSD. I also recommended her to consider O&P with primary care physician office because sometimes intestinal parasites can cause fibromyalgia like symptoms. She is scheduled for MRI of the lumbar spine. I will see her in 1 month in my office and go through the results of the MRI with her. Coding Level of Care Code Est Pt Level 3 (63142) Diagnoses Diabetic neuropathy E11.40 Fibromyalgia M79.7
[2023-12-05 09:43] VITALS: BP 128/88; PULSE 81; RESP 14; O2SAT 98; BMI 20.2
== END 2023-12-05 10:03 | disposition home or self-care (01) ==
PROVIDERS: PCP Internal Medicine; Visit Provider Anesthesiology
DX: E11.40 Type 2 diabetes mellitus with diabetic neuropathy, unspecified (principal); M79.7 Fibromyalgia
CPT/HCPCS: 99213

== ENCOUNTER 2023-12-05 18:15 | Outpatient (REF) | payer OTHER, SELFPAY ==
--- NOTE | ~2023-12-05 | MR_ITS ---
EXAMINATION: MR LUMBAR SPINE WITHOUT CONTRAST CLINICAL INFORMATION: Spondylosis without myelopathy. Back pain. COMPARISON: None available. TECHNIQUE: MRI of the lumbar spine was obtained using routine sequences without the administration of intravenous contrast. FINDINGS: This examination assumes the presence of 5 lumbar type vertebral bodies. For the purposes of this examination, the L5-S1 intervertebral disc space is visualized on axial series 5 image 28. The normal lumbar lordosis is preserved. No significant spondylolisthesis. Lumbar vertebral body heights are maintained. No expansile or destructive osseous lesion. The conus medullaris and cauda equina nerve roots are unremarkable; the conus terminates at the level of L2. L1-L2: No significant spinal canal or neural foraminal stenosis. L2-L3: No significant spinal canal or neural foraminal stenosis. L3-L4: No significant spinal canal or neural foraminal stenosis. L4-L5: Small right central disc protrusion indents the ventral thecal sac without significant canal stenosis. The neural foramen are patent. L5-S1: Disc bulge with central disc extrusion with mild inferior migration. Narrowing of the lateral recesses. The central canal is otherwise patent. The neural foramen are not significantly narrowed. MR/MR lumbar spine wo con IMPRESSION: Mild degenerative changes at L4-L5 and L5-S1 as described above. Otherwise, no significant spinal canal or neural foraminal stenosis.
== END 2023-12-05 18:16 | disposition home or self-care (01) ==
LOC: HO.MRI 18:15
PROVIDERS: PCP Internal Medicine; Visit Provider Anesthesiology
DX: M47.816 Spondylosis without myelopathy or radiculopathy, lumbar region (principal); E11.40 Type 2 diabetes mellitus with diabetic neuropathy, unspecified
CPT/HCPCS: 72148; 99212

== ENCOUNTER 2024-01-02 10:03 | Outpatient (AMB) | payer OTHER, SELFPAY ==
--- NOTE | 2024-01-02 10:09 | A.OFFVIS_ITS ---
Vital Signs 01/02/24 10:11 Height 5 ft Weight 105 lb 2 oz BMI 20.5 BP 148/90 H Blood Pressure Location Lt brachial Position Sitting Respiration 16 Pulse 82 Pulse Source Pulse Oximeter Pulse Oximetry (%) 100 Oxygen Delivery Method Room Air Intake Visit Reasons: 1 MONTH FOLLOW UP Intake Note: Patient comes in for 1 month follow up and to review MRI results. Reports pain 8/10. Allergies No Known Allergies [No Known Allergies*] Allergy (Verified 01/02/24 10:12) HPI Comments Details: Adriana is back in my office for the follow-up. She is very upset and crying during the visit all the time. She was sent for the MRI and the MRI demonstrate d very little of changes which could cause any significant pain. There is L5-S1 disc protrusion in the middle of the image a which slightly reduces the lateral recess size however it does not look like it effects any nerves or size of the central canal versus size of foramina. The facet joints are unremarkable on the MRI, there is no demonstrable inflammation in the joints. Unfortunately nothing at this time as indicated to perform in terms of interventional pain management. She may continue tizanidine she was prescribed and large doses of gabapentin she was prescribed. She reports that tizanidine I started her last time allows her to be more mobile, she reports less stiffness and she reports more activities of daily living ability to perform. She also reports that gabapentin 600 mg helps her. At this time we decided to continue with this medication. She is also scheduled for MRI and she will be followed up here with the MRI of the lumbar spine results. Next appointment in three months to renew her medications. Prior: Complains on pain widespread all over the body. she was in this office before, for the treatment of diabetic neuropathy she received SCS Nevro trial. She reported no help from SCS trial. She has opioid use disorder. She is on Suboxone. She complains on fibromyalgia kind of pain in bilateral shoulders bilateral lower back bilateral feet bilateral hands, she is also suffering from diabetic neuropathy on bilateral hands and feet. She reports severe pain in lower back 9/10. She reports pain in the shoulders 10/10. She reports that flexing forward hurts more than flexing backwards. Walking hurts more than sitting or laying down or standing. She reports that she can not sleep normally can not do activities of daily living can not take care of herself can not function normally she is currently unemployed. She reports that cold and weather changes aggravate her pain. She reports that heat applications make her pain better. However she demonstrated me the burn in her entire back which was received when she applied heat patch to her back. She received gabapentin to treat her pain she was previously on muscle relaxants but now she does not receive any muscle relaxants. She received Suboxone 03/30. She reports that this is the only medication she is prescribed for pain by her psychiatrist. She received multiple studies of her lumbar spine in the past including x-rays and MRIs but those were done more than 5 years ago. She received physical therapy and continues physical therapy with [facility]. She was trying massage therapy and 10s unit. She received therapeutic injections in 2004 2006. She reports no help from those injections. She received trial of spinal cord stimulator in the past and it was not effective for her pain. She is suffering from severe depression and she is under care of psychologist and psychiatrist. S PTSD. Her diabetes is also out of control with hemoglobin A1c 8.6. She reports that she lost her teeth and she can not eat normally. She has anemia and asthma. She has dizziness and fainting and headaches. She had in the past surgical history of . She also reports dental surgeries. She reports smoking cigarettes half a pack a day. Denies drinking alcohol, denies caffeinated beverages, she adamantly denies recreational drugs. alcohol denies recreational drugs. [facility], [facility] Medical History (Updated 11/03/23 @ 12:01 by Abhijit Mojica MD) Current smoker DKA, type 1 Recurrent major depression-severe Hx of diabetes with ketoacidosis Loss of all teeth Hair loss Herniated disc Neuropathy Anemia Myofascial pain syndrome Type 1 diabetes mellitus Asthma Fibromyalgia Chronic pain syndrome Lumbar spondylolysis Hx of rheumatoid arthritis Surgical History No pertinent past surgical history Social History Household Members: Spouse and Children Comment: chronic pain 06/07 preop Patient Tobacco Use Status: Current everyday Tobacco user Cigarette Packs Per Day: 0.50 Cigarettes Per Day: 5 Years Smoked: Since age 9 Second Hand Smoke Exposure: No Review of Systems Const All systems reviewed & are unremarkable except as noted in HPI and below ENT Denies Normal hearing present Neuro Denies Normal hearing present and Denies Abnormal speech present Physical Exam Vital Signs: Last Vital Signs Pulse 82 01/02/24 10:11 Resp 16 01/02/24 10:11 BP 148/90 H 01/02/24 10:11 Pulse Ox 100 01/02/24 10:11 Oxygen Delivery Method Room Air 01/02/24 10:11 BMI result Body Mass Index 20.5 Const General: cooperative, healthy appearing, no acute distress, alert and well groomed Nutritional Appearance: thin Orientation/consciousness: patient oriented x3 Limitations: no limitations HEENT Head: Yes normocephalic and Yes atraumatic Ears: hearing grossly normal bilaterally Eyes General: appearance normal, both eyes and all related structures Eyelids: Yes eyelids normal Pupils: Equal, round and reactive pupils present EOM: EOMs intact bilaterally Neck Neck: Yes normal visual inspection and Yes no JVD Resp Effort & Inspection: normal respiratory effort, able to speak in complete sentences and no audible wheezes Cardio Jugular venous distension: no JVD Neuro General: patient oriented x3, gait normal and moves all extremities Cranial nerves: Yes Equal, round and reactive pupils present and No Normal hearing present Speech: No Abnormal speech present Psych Appearance: grossly normal Speech and movement: Pressured speech present Affect: Labile affect present, Animated affect present, Anxious affect present, Hostile affect present, Depressed mood present and Irritable affect present Attitude: Belligerent attititude/behavior present Thought process: Tangential thought process present Thought content: Obsession(s) present Insight: Limited insight present (Psych) Judgement: Fair judgement present (Psych) Assessment & Plan Assessment & Plan (1) Diabetic neuropathy: Code(s): E11.40 - Type 2 diabetes mellitus with diabetic neuropathy, unspecified Category: Medical (2) Fibromyalgia: Code(s): M79.7 - Fibromyalgia Category: Medical Plan Adriana presents for evaluation of widespread pain which she attributes to fib romyalgia and diabetic neuropathy. In the past we discussed history of documented opioid use disorder resulting in violation of a pain contract. With this history she is not a candidate for medical management through this office. She is currently on Suboxone 10/06. She is very upset and crying in my office when I told her that she can not be prescribed with opioid medications neither with her diagnosis nor while she is on Suboxone. She had a Trial of Nevro SCS resulted in no improvement of the pain control. She gave only 30% of pain improvement while on trial. She reports some results of minimal dose of tizanidine 2 mg 3 times a day, she reports flexibility improvement, reports activities of daily living improvement. She wants to continue this medication. She also reports improvement with gabapentin 600 mg t.i.d.. I also will recommend her to continue this medication. Gabapentin and tizanidine are prescribed on 11/03/2023 with 5 refills. She is also on the antidepressants so I can not possibly consider starting her on yet another antidepressant with this office.Her depression is obviously unstable. Her fibromyalgia is very widespread. She also has PTSD. I also recommended her to consider O&P with primary care physician office because sometimes intestinal parasites can cause fibromyalgia like symptoms. She is scheduled for MRI of the lumbar spine. I will see her in 1 month in my office and go through the results of the MRI with her. Patient Instructions: I here by testify that I spent 31 minutes in conversation with this patient as well as planning her care and organizing this note. Coding Level of Care Code Est Pt Level 4 (32185) Diagnoses Diabetic neuropathy E11.40 Fibromyalgia M79.7
[2024-01-02 10:11] VITALS: BP 148/90; PULSE 82; RESP 16; O2SAT 100; BMI 20.5
== END 2024-01-02 10:32 | disposition home or self-care (01) ==
PROVIDERS: PCP Internal Medicine; Visit Provider Anesthesiology
DX: E11.40 Type 2 diabetes mellitus with diabetic neuropathy, unspecified (principal); M79.7 Fibromyalgia
CPT/HCPCS: 99214

== ENCOUNTER → 2024-01-02 10:03 | Outpatient (BNVA) | payer OTHER, SELFPAY | PROVIDERS: PCP Internal Medicine; Visit Provider Anesthesiology | DX: E11.40 Type 2 diabetes mellitus with diabetic neuropathy, unspecified (principal); M79.7 Fibromyalgia | CPT/HCPCS: 99212 ==

== ENCOUNTER 2024-05-03 10:11 | Outpatient (AMB) | payer OTHER, SELFPAY ==
[2024-05-03 10:17] VITALS: BP 138/86; PULSE 66; O2SAT 99; BMI 20.5
--- NOTE | 2024-05-03 10:17 | MHC.OFFVIS ---
Vital Signs 05/03/24 10:17 Height 5 ft Weight 105 lb BMI 20.5 BP 138/86 Blood Pressure Location Rt brachial Position Sitting Pulse 66 Pulse Source Pulse Oximeter Pulse Oximetry (%) 99 Oxygen Delivery Method Room Air Intake Visit Reasons: Medication Discussion Allergies No Known Allergies [No Known Allergies*] Allergy (Verified 05/03/24 10:18) Medication List - Last Reconciled 05/03/24 by Renetta Navarrete blood-glucose sensor ([employer] G6 Sensor device) As directed buprenorphine-naloxone 8-2 mg (Suboxone) 1 film sublingual TID clonazepam 1 mg PO BID PRN gabapentin 600 mg PO TID 30 days insulin degludec (Tresiba FlexTouch U-100 insulin) 0 - 30 units subcut DIRECTED insulin lispro (Humalog KwikPen (U-100) Insulin) 1 sliding scale dose subcut USEASDIRECTD pen needle, diabetic (BD Ana 2nd Gen Pen Needle) tizanidine 2 mg PO TID PRN 30 days HPI Comments Details: Adriana presents back to the office today for follow-up, medication management Continues with diffuse, all-over pain secondary to fibromyalgia. Pain today is rated a 7/10. Constant throughout the day. She has been taking gabapentin and tizanidine which provide her some improvement in daily functioning. Prior visit with Dr. Mojica: Adriana is back in my office for the follow-up. She is very upset and crying during the visit all the time. She was sent for the MRI and the MRI demonstrated very little of changes which could cause any significant pain. There is L5-S1 disc protrusion in the middle of the image a which slightly reduces the lateral recess size however it does not look like it effects any nerves or size of the central canal versus size of foramina. The facet joints are unremarkable on the MRI, there is no demonstrable inflammation in the joints. Unfortunately nothing at this time as indicated to perform in terms of interventional pain management. She may continue tizanidine she was prescribed and large doses of gabapentin she was prescribed. She reports that tizanidine I started her last time allows her to be more mobile, she reports less stiffness and she reports more activities of daily living ability to perform. She also reports that gabapentin 600 mg helps her. At this time we decided to continue with this medication. She is also scheduled for MRI and she will be followed up here with the MRI of the lumbar spine results. Next appointment in three months to renew her medications. Prior: Complains on pain widespread all over the body. she was in this office before, for the treatment of diabetic neuropathy she received SCS Nevro trial. She reported no help from SCS trial. She has opioid use disorder. She is on Suboxone. She complains on fibromyalgia kind of pain in bilateral shoulders bilateral lower back bilateral feet bilateral hands, she is also suffering from diabetic neuropathy on bilateral hands and feet. She reports severe pain in lower back 9/10. She reports pain in the shoulders 10/10. She reports that flexing forward hurts more than flexing backwards. Walking hurts more than sitting or laying down or standing. She reports that she can not sleep normally can not do activities of daily living can not take care of herself can not function normally she is currently unemployed. She reports that cold and weather changes aggravate her pain. She reports that heat applications make her pain better. However she demonstrated me the burn in her entire back which was received when she applied heat patch to her back. She received gabapentin to treat her pain she was previously on muscle relaxants but now she does not receive any muscle relaxants. She received Suboxone 03/30. She reports that this is the only medication she is prescribed for pain by her psychiatrist. She received multiple studies of her lumbar spine in the past including x-rays and MRIs but those were done more than 5 years ago. She received physical therapy and continues physical therapy with [facility]. She was trying massage therapy and 10s unit. She received therapeutic injections in 2004 2006. She reports no help from those injections. She received trial of spinal cord stimulator in the past and it was not effective for her pain. She is suffering from severe depression and she is under care of psychologist and psychiatrist. S PTSD. Her diabetes is also out of control with hemoglobin A1c 8.6. She reports that she lost her teeth and she can not eat normally. She has anemia and asthma. She has dizziness and fainting and headaches. She had in the past surgical history of . She also reports dental surgeries. She reports smoking cigarettes half a pack a day. Denies drinking alcohol, denies caffeinated beverages, she adamantly denies recreational drugs. alcohol denies recreational drugs. [facility] Medical History (Updated 11/03/23 @ 12:01 by Abhijit Mojica MD) Current smoker DKA, type 1 Recurrent major depression-severe Hx of diabetes with ketoacidosis Loss of all teeth Hair loss Herniated disc Neuropathy Anemia Myofascial pain syndrome Type 1 diabetes mellitus Asthma Fibromyalgia Chronic pain syndrome Lumbar spondylolysis Hx of rheumatoid arthritis Surgical History No pertinent past surgical history Social History Household Members: Spouse and Children Comment: chronic pain 06/07 preop Patient Tobacco Use Status: Current everyday Tobacco user Cigarette Packs Per Day: 0.50 Cigarettes Per Day: 5 Years Smoked: Since age 9 Second Hand Smoke Exposure: No Review of Systems Const All systems reviewed & are unremarkable except as noted in HPI and below Physical Exam Vital Signs: Last Vital Signs Pulse 66 05/03/24 10:17 BP 138/86 05/03/24 10:17 Pulse Ox 99 05/03/24 10:17 Oxygen Delivery Method Room Air 05/03/24 10:17 BMI result Body Mass Index 20.5 General: awake, alert, oriented. Answers questions appropriately. Fully engaged in examination. Skin: warm, dry, intact HEENT: Normocephalic. Hearing intact. Cardiac: External chest normal in appearance. Respiratory: No cough, audible wheezing or stridor. Abdomen: without gross distension. MS: No obvious swelling or deformities. Neurological: Oriented to person, place, time and situation. Thought process intact. No gait abnormalities appreciated. Psychiatric: Appropriate mood and affect. Good judgment and insight. Results Reviewed Results Reviewed: 12/05/23 MR/MR lumbar spine wo con FINDINGS: This examination assumes the presence of 5 lumbar type vertebral bodies. For the purposes of this examination, the L5-S1 intervertebral disc space is visualized on axial series 5 image 28. The normal lumbar lordosis is preserved. No significant spondylolisthesis. Lumbar vertebral body heights are maintained. No expansile or destructive osseous lesion. The conus medullaris and cauda equina nerve roots are unremarkable; the conus terminates at the level of L2. L1-L2: No significant spinal canal or neural foraminal stenosis. L2-L3: No significant spinal canal or neural foraminal stenosis. L3-L4: No significant spinal canal or neural foraminal stenosis. L4-L5: Small right central disc protrusion indents the ventral thecal sac without significant canal stenosis. The neural foramen are patent. L5-S1: Disc bulge with central disc extrusion with mild inferior migration. Narrowing of the lateral recesses. The central canal is otherwise patent. The neural foramen are not significantly narrowed. IMPRESSION: Mild degenerative changes at L4-L5 and L5-S1 as described above. Otherwise, no significant spinal canal or neural foraminal stenosis. Assessment & Plan Assessment & Plan (1) Diabetic neuropathy: Code(s): E11.40 - Type 2 diabetes mellitus with diabetic neuropathy, unspecified Category: Medical (2) Fibromyalgia: Code(s): M79.7 - Fibromyalgia Category: Medical Plan Continue with tizanidine 2 mg 3 times daily as needed Continue with gabapentin 600 mg 3 times daily as needed Discussed fibromyalgia treatment with lifestyle modifications All questions and concerns were answered, patient agrees with the plan. Follow up with Dr. Mojica in 3 months, sooner if needed Coding Level of Care Code Est Pt Level 4 (24531) Complex EM visit Add On G2211 Diagnoses Diabetic neuropathy E11.40 Fibromyalgia M79.7
== END 2024-05-03 10:42 | disposition home or self-care (01) ==
PROVIDERS: PCP Internal Medicine; Visit Provider Registered Nurse Emergency
DX: E11.40 Type 2 diabetes mellitus with diabetic neuropathy, unspecified (principal); M79.7 Fibromyalgia
CPT/HCPCS: 99214; G2211

== ENCOUNTER → 2024-05-03 10:11 | Outpatient (BNVA) | payer OTHER, SELFPAY | PROVIDERS: PCP Internal Medicine; Visit Provider Registered Nurse Emergency | DX: E11.40 Type 2 diabetes mellitus with diabetic neuropathy, unspecified (principal); M79.7 Fibromyalgia | CPT/HCPCS: 99212 ==